=== PATIENT | male | born 1970 | race Caucasian/White ===

== ENCOUNTER 2017-06-23 13:58 | Emergency (ER) | payer OTHER ==
[2017-06-23] MEDS: KETOROLAC 60 MG INJ IM (15:24)
[2017-06-23 16:08] LABS: TROPONIN-I < 0.012 ng/ml (0.00-0.12)
== END 2017-06-23 16:37 | disposition home or self-care (01) ==
LOC: FTE 13:58
DX: M94.0 Chondrocostal junction syndrome [Tietze] (principal); Z87.891 Personal history of nicotine dependence
CPT/HCPCS: 84484; 93005; 96372; 99284-25